=== PATIENT | female | born 1980 | race African-American/Black ===

== ENCOUNTER 2020-02-10 23:22 | Emergency (ER) | payer MEDICAID ==
[~2020-02-10] VITALS: Ht 157.5 cm; Wt 66.0 kg
[2020-02-11 01:45] VITALS: BP 117/76
== END 2020-02-11 01:49 | disposition home or self-care (01) ==
LOC: ER 23:22
DX: S82.54XA Nondisplaced fracture of medial malleolus of right tibia, initial encounter for closed fracture (principal); X50.1XXA Overexertion from prolonged static or awkward postures, initial encounter; Y93.89 Activity, other specified; Y92.018 Other place in single-family (private) house as the place of occurrence of the external cause
CPT/HCPCS: 29515; 73610; 99283

== ENCOUNTER 2020-06-19 19:15 | Emergency (ER) | payer MEDICAID ==
[~2020-06-19] VITALS: Ht 157.5 cm; Wt 66.7 kg
[2020-06-19] MEDS ORDERED: IBUPROFEN 600MG TABLET PO ONE (19:45)
[2020-06-19 22:00] VITALS: BP 110/76
== END 2020-06-19 22:30 | disposition home or self-care (01) ==
LOC: ER 19:15
DX: S83.8X1A Sprain of other specified parts of right knee, initial encounter (principal); Z98.890 Other specified postprocedural states; Z87.81 Personal history of (healed) traumatic fracture; W01.0XXA Fall on same level from slipping, tripping and stumbling without subsequent striking against object, initial encounter; Y93.89 Activity, other specified; Y92.018 Other place in single-family (private) house as the place of occurrence of the external cause
CPT/HCPCS: 73560; 81025; 99283

== ENCOUNTER 2020-06-30 23:54 | Emergency (ER) | payer MEDICAID ==
[~2020-06-30] VITALS: Ht 157.5 cm; Wt 66.0 kg
[2020-07-01 00:18] VITALS: BP 136/83
[2020-07-01] MEDS ORDERED: SULF1TAB48 PO (02:10)
[2020-07-01] MEDS ORDERED: IBUP-2029 PO (02:10)
== END 2020-07-01 02:21 | disposition home or self-care (01) ==
LOC: ER 23:54
DX: N75.0 Cyst of Bartholin's gland (principal); Z90.49 Acquired absence of other specified parts of digestive tract; Z98.890 Other specified postprocedural states
CPT/HCPCS: 81025; 99283

== ENCOUNTER 2021-03-26 05:34 | Emergency (ER) | payer MEDICAID ==
[~2021-03-26] VITALS: Ht 157.5 cm; Wt 64.0 kg
[~2021-03-26 05:34] MED LIST: IBUP-2029 PO; SULF1TAB48 PO
[2021-03-26] MEDS ORDERED: CYCLOBENZAPRINE 10MG TABLET PO ONE ×2 (08:15→13:00)
[2021-03-26] MEDS ORDERED: KETOROLAC 30MG/ML VIAL IM ONE (08:15)
[2021-03-26] MEDS ORDERED: KETOROLAC 30MG/ML VIAL IV ONE (13:00)
[2021-03-26 14:21] VITALS: BP 110/63
== END 2021-03-26 14:22 | disposition home or self-care (01) ==
LOC: ER 05:34
DX: S30.810A Abrasion of lower back and pelvis, initial encounter (principal); F17.210 Nicotine dependence, cigarettes, uncomplicated; Z71.6 Tobacco abuse counseling; Z90.49 Acquired absence of other specified parts of digestive tract; W10.8XXA Fall (on) (from) other stairs and steps, initial encounter; Y93.89 Activity, other specified; Y92.018 Other place in single-family (private) house as the place of occurrence of the external cause
CPT/HCPCS: 72220; 96372; 99283; 99406; J1885

== ENCOUNTER 2023-05-29 01:44 | Emergency (ER) | payer MEDICAID ==
[~2023-05-29] VITALS: Ht 162.6 cm; Wt 67.5 kg
[2023-05-29 02:18] VITALS: O2SAT 97
[2023-05-29 03:04] LABS: BASOPHILS % 0.4 % (0.0-2.0); EOSINOPHILS % 1.1 % (0.0-5.0); HEMATOCRIT. 40.7 % (36.0-48.0); HEMOGLOBIN. 13.9 g/dL (12.0-16.0); LYMPHOCYTES % 29.5 % (20.0-50.0); MEAN CORPUSCULAR HEMOGLOBIN 30.6 pg (28.0-32.0); MEAN CORPUSCULAR HGB CONC 34.1 g/dL (31.0-37.0); MEAN CORPUSCULAR VOLUME 89.9 fL (81.0-99.0); MEAN PLATELET VOLUME 8.7 fl (7.4-10.4); MONOCYTES % 9.9 % (2.0-8.0); NEUTROPHILS % 59.1 % (40.0-76.0); PLATELET 186 x1000/uL (130-400); RED BLOOD CELL COUNT 4.53 mill/uL (4.2-5.4); RED CELL DISTRIBUTION WIDTH 12.9 % (11.6-14.6); WHITE BLOOD COUNT 8.1 x1000/uL (4.5-11.0)
[2023-05-29 03:15] LABS: INR 0.9; PROTHROMBIN TIME 9.8 sec (9.6-11.0)
[2023-05-29 03:18] LABS: ALANINE AMINOTRANSFERASE 8 IU/L (10-49); ALBUMIN 4.5 g/dL (3.2-4.8); ASPARTATE AMINOTRANSFERASE 19 IU/L (<34); BILIRUBIN TOTAL 0.7 mg/dL (0.1-1.0); CALCIUM 9.3 mg/dL (8.7-10.4); CARBON DIOXIDE 26 mEq/L (21-32); CHLORIDE 103 mEq/L (98-107); CREATININE 0.7 mg/dL (0.6-1.0); GLUCOSE 102 mg/dL (70-105); POTASSIUM 4.3 mEq/L (3.5-5.1); PROTEIN TOTAL 7.2 g/dL (6.0-8.3); SODIUM 136 mEq/L (136-145); UREA NITROGEN BLOOD 10 mg/dL (9-23)
[2023-05-29 03:20] LABS: HCG SCREEN NEGATIVE
[2023-05-29 03:46] LABS: TROPONIN I HIGH SENSITIVITY < 4 ng/L (3.0-34)
[2023-05-29 09:59] VITALS: BP 105/59; PULSE 95; RESP 16; TEMP 97.7
[2023-05-29 12:06] LABS: CLARITY URINE CLOUDY (CLEAR); COLOR URINE DARK YELLOW (YELLOW); GLUCOSE URINE NEGATIVE (NEGATIVE); KETONES URINE TRACE (NEGATIVE); LEUKOCYTE ESTERASE URINE 1+ (NEGATIVE); NITRITE URINE POSITIVE (NEGATIVE); OCCULT BLOOD URINE NEGATIVE (NEGATIVE); PH URINE 5.5 (4.5-8.0); PROTEIN URINE TRACE (NEGATIVE); SPECIFIC GRAVITY URINE 1.034 (1.005-1.030)
[2023-05-29 12:56] LABS: BACTERIA URINE 4+; SQUAMOUS EPITHELIAL CELL URINE 3+ /lpf (RARE/1+)
[2023-05-29 12:58] LABS: RBC URINE NONE SEEN /hpf (0-2)
== END 2023-05-29 12:58 | disposition home or self-care (01) ==
LOC: ER 01:44
DX: R06.02 Shortness of breath (principal)
CPT/HCPCS: 36415; 71045; 80053; 81003; 81025; 83880; 84484; 84703; 85025; 93005; 99285

== ENCOUNTER 2024-05-07 00:28 | Emergency (ER) | payer MEDICAID ==
[~2024-05-07] VITALS: Ht 165.1 cm; Wt 66.0 kg
[2024-05-07 00:41] VITALS: O2SAT 100
[2024-05-07 00:48] VITALS: BP 141/84; PULSE 89; RESP 18; TEMP 98; O2SAT 100
[2024-05-07 02:56] LABS: BASOPHILS % 0.8 % (0.0-2.0); EOSINOPHILS % 1.1 % (0.0-5.0); HEMATOCRIT. 42.9 % (36.0-48.0); HEMOGLOBIN. 14.4 g/dL (12.0-16.0); LYMPHOCYTES % 32.8 % (20.0-50.0); MEAN CORPUSCULAR HEMOGLOBIN 30.8 pg (28.0-32.0); MEAN CORPUSCULAR HGB CONC 33.6 g/dL (31.0-37.0); MEAN CORPUSCULAR VOLUME 91.6 fL (81.0-99.0); MEAN PLATELET VOLUME 8.2 fl (7.4-10.4); MONOCYTES % 7.9 % (2.0-8.0); NEUTROPHILS % 57.4 % (40.0-76.0); PLATELET 236 x1000/uL (130-400); RED BLOOD CELL COUNT 4.69 mill/uL (4.2-5.4); RED CELL DISTRIBUTION WIDTH 12.9 % (11.6-14.6); WHITE BLOOD COUNT 7.2 x1000/uL (4.5-11.0)
[2024-05-07] MEDS: ACETAMINOPHEN 325MG TABLET PO ONE (03:06)
[2024-05-07 03:11] LABS: CHLORIDE 104 mEq/L (98-107); POTASSIUM 4.1 mEq/L (3.5-5.1); SODIUM 139 mEq/L (136-145)
[2024-05-07 03:12] LABS: CARBON DIOXIDE 26 mEq/L (21-32)
[2024-05-07 03:17] LABS: CREATININE 0.9 mg/dL (0.6-1.0); GLUCOSE 100 mg/dL (70-105)
[2024-05-07 03:18] LABS: UREA NITROGEN BLOOD 11 mg/dL (9-23)
[2024-05-07 03:19] LABS: ALANINE AMINOTRANSFERASE 11 IU/L (10-49); ALBUMIN 4.9 g/dL (3.2-4.8); ASPARTATE AMINOTRANSFERASE 17 IU/L (<34)
[2024-05-07 03:20] LABS: BILIRUBIN DIRECT 0.1 mg/dL (<=3.0); BILIRUBIN TOTAL 0.8 mg/dL (0.1-1.0); PROTEIN TOTAL 7.6 g/dL (6.0-8.3)
[2024-05-07 03:47] LABS: CLARITY URINE CLOUDY (CLEAR); COLOR URINE ORANGE (YELLOW); GLUCOSE URINE NEGATIVE (NEGATIVE); KETONES URINE NEGATIVE (NEGATIVE); LEUKOCYTE ESTERASE URINE 1+ (NEGATIVE); NITRITE URINE POSITIVE (NEGATIVE); OCCULT BLOOD URINE 3+ (NEGATIVE); PH URINE 6.5 (4.5-8.0); PROTEIN URINE 1+ (NEGATIVE); SPECIFIC GRAVITY URINE 1.016 (1.005-1.030)
[2024-05-07 03:55] LABS: HCG SCREEN NEGATIVE
[2024-05-07] MEDS ORDERED: ACET-2708 MT (04:18)
[2024-05-07] MEDS ORDERED: CEPH500T MT (04:18)
[2024-05-07 04:49] LABS: SQUAMOUS EPITHELIAL CELL URINE 2+ /lpf (RARE/1+)
[2024-05-07 04:51] LABS: BACTERIA URINE 1+; RBC URINE 15-25 /hpf (0-2)
[2024-05-07 04:52] LABS: WBC URINE 0-2 /hpf (0-2)
[2024-05-07] MEDS: CEPHALEXIN 250MG CAPSULE PO ONE (05:03)
== END 2024-05-07 05:02 | disposition home or self-care (01) ==
LOC: ER 01:06
DX: N39.0 Urinary tract infection, site not specified (principal); Z90.89 Acquired absence of other organs
CPT/HCPCS: 36415; 80048; 80076; 81003; 84703; 85025; 87077; 87186; 99283

== ENCOUNTER 2024-11-30 04:57 | Emergency (ER) | payer MEDICAID ==
[~2024-11-30] VITALS: Ht 157.5 cm; Wt 64.4 kg
[~2024-11-30 04:57] MED LIST changes: +ACET-2708 MT; +CEPH500T MT
[2024-11-30 05:09] VITALS: O2SAT 99
[2024-11-30] MEDS: KETOROLAC 15MG/ML VIAL IV ONE (05:35)
[2024-11-30] MEDS: METOCLOPRAMIDE HCL 10MG/2ML VIAL IV ONE (05:35)
[2024-11-30] MEDS: SODIUM CHLORIDE 0.9% 1,000 ML IV ONE (05:35)
[2024-11-30 05:53] LABS: BASOPHILS % 0.2 % (0.0-2.0); EOSINOPHILS % 0.2 % (0.0-5.0); HEMATOCRIT. 42.6 % (36.0-48.0); HEMOGLOBIN. 14.0 g/dL (12.0-16.0); LYMPHOCYTES % 10.5 % (20.0-50.0); MEAN PLATELET VOLUME 8.6 fl (7.4-10.4); MONOCYTES % 7.8 % (2.0-8.0); NEUTROPHILS % 81.3 % (40.0-76.0); PLATELET 200 x1000/uL (130-400); RED BLOOD CELL COUNT 4.74 mill/uL (4.2-5.4); RED CELL DISTRIBUTION WIDTH 13.0 % (11.6-14.6)
[2024-11-30 06:03] LABS: CREATININE 0.8 mg/dL (0.6-1.0); UREA NITROGEN BLOOD 9 mg/dL (9-23)
[2024-11-30] MEDS ORDERED: TOPUD PO (08:23)
[2024-11-30 09:09] VITALS: BP 9/62; PULSE 94; RESP 16; TEMP 36.8; O2SAT 99
== END 2024-11-30 09:40 | disposition home or self-care (01) ==
LOC: ER 05:05
DX: B34.9 Viral infection, unspecified (principal); R51.9 Headache, unspecified; Z20.822 Contact with and (suspected) exposure to COVID-19; Z79.899 Other long term (current) drug therapy; Z90.89 Acquired absence of other organs
CPT/HCPCS: 80048; 85025; 36415; 71045; 93005; 96361; 96374; 96375; 99285; 87426; J1885; J2765; J7030; Z7610 ×2